=== PATIENT | female | born 1970 | race Caucasian/White ===

== ENCOUNTER → 2018-09-04 | Outpatient (CLI) | payer OTHER ==
[~2018-09-04] MED LIST: AMOX-559 PO; BENZ200C15 PO; CEFU500T10 PO; CHOL10005 PO; FLU150 PO; FLU60SYR36 IM; GUAI120L3 PO; HYDR-653 PO; LORA10CA3 PO; NORE-7 PO; NORE1TAB81 PO; OMEP-125 PO; PRED20TA6 PO
[2018-09-04 09:45] LABS: PLATELET COUNT, AUTOMATED 279 K/uL (150-450)
== END ==
LOC: LAB 09:28
PROVIDERS: ATTEND Internal Medicine
DX: Z00.00 Encounter for general adult medical examination without abnormal findings (principal)
CPT/HCPCS: 36415; 82040; 82247; 82306; 82310; 82374; 82435; 82465; 82565; 82947; 83718; 84075; 84132; 84155; 84295; 84450; 84460; 84478; 84520; 85025

== ENCOUNTER → 2018-11-29 | Outpatient (CLI) | payer OTHER ==
--- NOTE | 2018-11-29 15:32 | RADIOLOGY IMAGING REPORT ---
FACILITY: [facility] [place] PATIENT NAME: Audra Moore : 1970 MR: [id number] V: [id number] EXAM DATE: ORDERING PHYSICIAN: NADINE ELLISON TECHNOLOGIST: Location: [facility] [place] Patient: Audra Moore : 1970 Visit/Account:[id number] Date of Sevice: 11/29/2018 ADDENDUM #1 The prior right wrist series available for comparison was from October 07, 2016 Report Dictated By: Samanta Rahman MD at 11/29/2018 3:30 PM Report E-Signed By: Samanta Rahman MD at 11/29/2018 3:30 PM ORIGINAL REPORT Exam type: HAND LIMITED LEFT History: Pain left hand near first metacarpal phalangeal joint Comparison: Right wrist performed today. Findings: Two views of the left hand demonstrates no evidence of acute fracture dislocation or significant arth ritic change. No weight opaque soft tissue foreign bodies identified IMPRESSION: 1. No osteoarticular abnormality the left hand is seen Report Dictated By: Samanta Rahman MD at 11/29/2018 3:26 PM Report E-Signed By: Samanta Rahman MD at 11/29/2018 3:27 PM WSN:[email or web address]
== END ==
LOC: RAD 14:50
PROVIDERS: ATTEND Internal Medicine
DX: M79.642 Pain in left hand (principal)

== ENCOUNTER → 2019-03-29 | Outpatient (CLI) | payer OTHER ==
[2019-03-29 08:59] LABS: PLATELET COUNT, AUTOMATED 276 K/uL (150-450)
== END ==
LOC: LAB 08:38
PROVIDERS: ATTEND Emergency Medicine
DX: R10.9 Unspecified abdominal pain (principal)
CPT/HCPCS: 36415; 81001; 82040; 82247; 82310; 82374; 82435; 82565; 82607; 82947; 84075; 84132; 84155; 84295; 84443; 84450; 84460; 84520; 85025; 87338

== ENCOUNTER → 2019-04-02 | Outpatient (CLI) | payer OTHER ==
--- NOTE | 2019-04-02 12:20 | RADIOLOGY IMAGING REPORT ---
FACILITY: [facility] PATIENT NAME: Audra Moore : 1970 MR: [id number] V: [id number] EXAM DATE: ORDERING PHYSICIAN: GAUTAM CORRAL TECHNOLOGIST: Location: [facility] Patient: Audra Moore : 1970 Visit/Account:[id number] Date of Sevice: 04/02/2019 KIDNEYS HISTORY: elevated creatinine EXAMINATION: Renal ultrasound HISTORY: COMPARISON: None. FINDINGS: Kidneys: Right kidney- 9.4 x 4.8 x 4.6 cm, normal parenchymal thickness and echogenicity. Left kidney- 8.3 x 4.5 x 5.0 cm, normal parenchymal thickness and echogenicity. Uniform and symmetric blood flow in each kidney by Doppler ultrasound. Hydronephrosis: none. Bladder: 357 mL prevoid. 12 mL post void. Bilateral ureteral jets Abdominal aorta and IVC: patent by Doppler ultrasound. IMPRESSION: Negative ultrasound for acute renal pathology. No evidence of hydronephrosis. No evidence of atroph y or chronic renal medical disease. Report Dictated By: Gilles Zavala MD at 04/02/2019 12:13 PM Report E-Signed By: Gilles Zavala MD at 04/02/2019 12:15 PM WSN:[email or web address]
== END ==
LOC: US 00:54
PROVIDERS: ATTEND Emergency Medicine
DX: R79.89 Other specified abnormal findings of blood chemistry (principal)
CPT/HCPCS: 36415; 76705; 82310; 82374; 82435; 82565; 82610; 82947; 84132; 84295; 84520

== ENCOUNTER → 2019-04-17 | Outpatient (CLI) | payer OTHER ==
--- NOTE | 2019-04-17 08:45 | RADIOLOGY IMAGING REPORT ---
FACILITY: [facility] [place] PATIENT NAME: Audra Moore : 1970 MR: [id number] V: [id number] EXAM DATE: ORDERING PHYSICIAN: GAUTAM CORRAL TECHNOLOGIST: Location: [facility] [place] Patient: Audra Moore : 1970 Visit/Account:[id number] Date of Sevice: 04/17/2019 Abdominal ultrasound, complete. HISTORY: Abdominal tenderness. COMPARISON: Renal ultrasound 04/02/2019. The liver measures 14.3 cm in sagittal length. The liver is free of focal defects. The surface of the liver is smooth. The portal vein is patent. No intra or extrahepatic biliary dilatation. The gallbla dder is unremarkable. The sonographic Piña's sign is negative. The pancreas is unremarkable. The ri ght kidney is normal in size. No hydronephrosis. No ascites. Portions of the abdominal aorta and infe rior vena cava are obscured. The spleen and left kidney were not included. The common bile duct measu res 5.6 mm in greatest AP diameter. IMPRESSION: Negative right upper abdomen. Report Dictated By: Danyel Kelley MD at 04/17/2019 8:38 AM Report E-Signed By: Danyel Kelley MD at 04/17/2019 8:40 AM WSN:[email or web address]
== END ==
LOC: US 00:26
PROVIDERS: ATTEND Emergency Medicine
DX: R10.819 Abdominal tenderness, unspecified site (principal)
CPT/HCPCS: 76705

== ENCOUNTER → 2019-05-04 | Outpatient (CLI) | payer OTHER ==
[~2019-05-04] MED LIST changes: -OMEP-125 PO; +OMEP-126 PO
--- NOTE | 2019-05-07 16:35 | RADIOLOGY IMAGING REPORT ---
FACILITY: [facility] [place] PATIENT NAME: JIGNA GAYTAN : [id number] MR: [id number] V: [id number] EXAM DATE: ORDERING PHYSICIAN: GAUTAM CORRAL TECHNOLOGIST: Raegan Leong PROCEDURE: BILATERAL DIGITAL SCREENING MAMMOGRAM WITH CAD ASSISTED INTERPRETATION & 3D TOMOSYNTHESIS REASON FOR STUDY: Screening. FAMILY HISTORY OF BREAST CANCER: BREAST PROCEDURES/TREATMENTS: COMPARISON: None. Baseline study. VIEWS OBTAINED: Bilateral 2D & 3D full field CC & MLO projections BREAST DENSITY: The breasts have scattered fibroglandular parenchymal densities. There are no mammographic findings concerning for malignancy. MAMMOGRAM FINDINGS: IMPRESSION: BIRADS 1: Negative. DIAGNOSTIC CATEGORY 1--NEGATIVE. RECOMMENDATIONS: ROUTINE MAMMOGRAM IN 1 YEAR AND CLINICAL EVALUATION. Dictated by: Crow Batista on 05/07/2019 at 9:31 Transcribed by: HOA on 05/07/2019 at 14:37 Approved by: Crow Batista on 05/07/2019 at 16:33 [facility]
== END ==
LOC: MAMO 04:07
PROVIDERS: ATTEND Emergency Medicine
DX: Z12.31 Encounter for screening mammogram for malignant neoplasm of breast (principal)
CPT/HCPCS: 77063; 77067

== ENCOUNTER → 2019-05-04 | Outpatient (CLI) | payer OTHER | LOC: MAMO 14:33 | PROVIDERS: ATTEND Emergency Medicine | DX: Z12.31 Encounter for screening mammogram for malignant neoplasm of breast (principal) ==